=== PATIENT | female | born 1950 | race Caucasian/White ===

== ENCOUNTER → 2023-07-16 09:39 | Outpatient (BNVA) | payer MEDICARE, SELFPAY | PROVIDERS: Visit Provider Family Medicine | DX: R73.03 Prediabetes (principal); E53.8 Deficiency of other specified B group vitamins | CPT/HCPCS: 80048; 82607; 82746; 83036; 85025 ==

== ENCOUNTER → 2023-12-23 11:02 | Outpatient (BNVA) | payer MEDICARE, SELFPAY | PROVIDERS: PCP Family Medicine; Visit Provider Family Medicine | DX: R30.0 Dysuria (principal) | CPT/HCPCS: 81000; 87077; 87086; 87184 ==

== ENCOUNTER → 2024-01-27 16:56 | Outpatient (BNVA) | payer MEDICARE, SELFPAY | PROVIDERS: PCP Family Medicine; Visit Provider Nurse Practitioner Family | DX: R30.0 Dysuria (principal); N30.00 Acute cystitis without hematuria | CPT/HCPCS: 81000; 87077; 87086; 87184 ==

== ENCOUNTER → 2024-06-17 11:41 | Outpatient (BNVA) | payer MEDICARE, SELFPAY | PROVIDERS: PCP Family Medicine; Visit Provider Family Medicine | DX: Z13.6 Encounter for screening for cardiovascular disorders (principal); Z13.220 Encounter for screening for lipoid disorders; E53.8 Deficiency of other specified B group vitamins; R10.9 Unspecified abdominal pain; R73.03 Prediabetes | CPT/HCPCS: 80053; 80061; 82607; 83036; 83690 ==

== ENCOUNTER 2024-06-23 16:23 | Outpatient (CLI) | payer MEDICARE, SELFPAY ==
--- NOTE | 2024-06-23 16:29 | XR_ITS ---
WS: [id number] XR lumbar spine 2-3V* [id number] REASON FOR EXAM: M54.50 - Low back pain, unspecified FINDINGS: Severe rotatory levoscoliosis of the lumbar spine. Relatively normal lordosis of the lumbar spine. Mild to moderate deformities of the superior endplate of L2, L3, and L5. Significant narrowing of the disc space at L2-L3. Remainder of the disc spaces mild to moderate narro wing. No significant listhesis. Moderate degenerative arthropathy in the facet joints at L5-S1. XR/XR lumbar spine 2-3V* [id number] IMPRESSION: Degenerative spondylosis. Compression deformities of unknown chronicity as above.
== END 2024-06-23 16:24 | disposition home or self-care (01) ==
LOC: RAD 16:25
PROVIDERS: PCP Family Medicine; Visit Provider Family Medicine
DX: M41.86 Other forms of scoliosis, lumbar region (principal); M47.896 Other spondylosis, lumbar region; M48.061 Spinal stenosis, lumbar region without neurogenic claudication
CPT/HCPCS: 72100

== ENCOUNTER → 2024-07-10 16:27 | Outpatient (BNVA) | payer MEDICARE, SELFPAY | PROVIDERS: PCP Family Medicine; Visit Provider Emergency Medicine | DX: R30.0 Dysuria (principal); N39.0 Urinary tract infection, site not specified | CPT/HCPCS: 81000; 87086 ==

== ENCOUNTER → 2024-10-21 11:00 | Outpatient (BNVA) | payer MEDICARE, SELFPAY | PROVIDERS: PCP Family Medicine; Referring Provider Family Medicine; Visit Provider Specialist | DX: B02.9 Zoster without complications (principal); M53.86 Other specified dorsopathies, lumbar region; R03.0 Elevated blood-pressure reading, without diagnosis of hypertension; G24.4 Idiopathic orofacial dystonia; G25.0 Essential tremor | CPT/HCPCS: 99204 ==

== ENCOUNTER 2024-11-03 12:17 | Outpatient (CLI) | payer MEDICARE, SELFPAY ==
--- NOTE | 2024-11-03 12:15 | MR_ITS ---
WS: [id number] MRI LUMBAR SPINE NONCONTRAST TECHNIQUE: Sagittal T1, T2 and STIR imaging. Axial T1 and T2 imaging. CLINICAL INFORMATION: M53.86 - Other specified dorsopathies, lumbar region COMPARISON: None. FINDINGS: S-shaped scoliosis. No acute compression. Slight anterolisthesis L3 on L4 and L4 on L5. Disc bulging throughout the lumbar spine with moderate to advanced spondylitic changes. L1-L2: Mild disc bulging with narrowing of the subarticular recess bilaterally. Moderate facet arthro brandy. Mild bilateral foraminal narrowing. Mild central canal stenosis. L2-L3: Disc bulging with moderate central canal stenosis. Impingement on RIGHT greater than LEFT suba rticular recess. Moderate facet arthropathy and ligamentum flavum hypertrophy. Mild RIGHT greater michael n LEFT foraminal narrowing. L3-L4: Mild disc bulging with impingement subarticular recess bilaterally. Moderate central canal leon nosis. Moderate facet arthropathy ligamentum flavum hypertrophy. Moderate RIGHT and mild LEFT foramin al narrowing. L4-L5: Disc bulging in combination with facet arthropathy and ligamentum flavum hypertrophy results i n moderate to severe central canal stenosis. Impingement LEFT subarticular recess. Mild bilateral fo raminal narrowing. L5-S1: Mild disc bulging impinges the traversing S1 nerve roots bilaterally LEFT greater than RIGHT. Moderate facet arthropathy ligamentum flavum hypertrophy. Moderate central canal stenosis. Moderate L EFT and mild RIGHT foraminal narrowing. Visualized pelvic bony structures: Normal. Paravertebral soft tissues: Normal. Cholelithiasis. MR/MR lumbar spine wo con* [id number] IMPRESSION: 1. Lumbar scoliosis. No acute compression. 2. Moderate to severe central canal stenosis L4-5. Moderate central canal sten osis L5-S1. 3. Mild central canal stenosis L1-2 and L3-4. Moderate central canal stenosis L2-3. 4. Moderate RIGHT L2-3 RIGHT L3-4 and LEFT L5-S1 foraminal narrowing. 5. Cholelithiasis. This can be followed up with ultrasound.
== END 2024-11-03 12:18 | disposition home or self-care (01) ==
PROVIDERS: PCP Family Medicine; Visit Provider Specialist
DX: M51.360 Other intervertebral disc degeneration, lumbar region with discogenic back pain only (principal); M53.86 Other specified dorsopathies, lumbar region; M41.86 Other forms of scoliosis, lumbar region; M47.896 Other spondylosis, lumbar region; M99.63 Osseous and subluxation stenosis of intervertebral foramina of lumbar region; M54.16 Radiculopathy, lumbar region; M24.28 Disorder of ligament, vertebrae
CPT/HCPCS: 72148

== ENCOUNTER → 2024-12-03 13:42 | Outpatient (BNVA) | payer MEDICARE, SELFPAY | PROVIDERS: PCP Family Medicine; Visit Provider Orthopaedic Surgery | DX: M48.062 Spinal stenosis, lumbar region with neurogenic claudication (principal); M54.9 Dorsalgia, unspecified; M54.6 Pain in thoracic spine; M54.2 Cervicalgia | CPT/HCPCS: 72050; 72072; 72110; 99204 ==

== ENCOUNTER → 2024-12-04 13:00 | Outpatient (BNVA) | payer MEDICARE, SELFPAY | PROVIDERS: PCP Family Medicine; Visit Provider Specialist | DX: G24.4 Idiopathic orofacial dystonia (principal) | CPT/HCPCS: J0585 ==

== ENCOUNTER → 2024-12-28 13:37 | Outpatient (BNVA) | payer MEDICARE, SELFPAY | PROVIDERS: PCP Family Medicine; Visit Provider Anesthesiology Pain Medicine | DX: M48.062 Spinal stenosis, lumbar region with neurogenic claudication (principal) | CPT/HCPCS: 99204 ==

== ENCOUNTER → 2025-01-13 14:26 | Outpatient (BNVA) | payer MEDICARE, SELFPAY | PROVIDERS: PCP Family Medicine; Visit Provider Anesthesiology Pain Medicine | DX: M54.16 Radiculopathy, lumbar region (principal); M48.062 Spinal stenosis, lumbar region with neurogenic claudication | CPT/HCPCS: 64483; 64484; J1100; J3490 ==

== ENCOUNTER → 2025-02-11 14:30 | Outpatient (BNVA) | payer MEDICARE, SELFPAY | PROVIDERS: PCP Family Medicine; Visit Provider Nurse Practitioner Family | DX: M48.062 Spinal stenosis, lumbar region with neurogenic claudication (principal); M54.2 Cervicalgia | CPT/HCPCS: 72040; 73030; 99214 ==

== ENCOUNTER → 2025-02-23 13:31 | Outpatient (BNVA) | payer MEDICARE, SELFPAY | PROVIDERS: PCP Family Medicine; Visit Provider Anesthesiology Pain Medicine | DX: M54.16 Radiculopathy, lumbar region (principal); M54.9 Dorsalgia, unspecified; M48.062 Spinal stenosis, lumbar region with neurogenic claudication | CPT/HCPCS: 64483; 64484; J1100; J3490; J9999 ==

== ENCOUNTER → 2025-03-02 15:26 | Outpatient (BNVA) | payer MEDICARE, SELFPAY | PROVIDERS: PCP Family Medicine; Visit Provider Orthopaedic Surgery | DX: M48.062 Spinal stenosis, lumbar region with neurogenic claudication (principal) | CPT/HCPCS: 99213 ==

== ENCOUNTER → 2025-03-12 13:29 | Outpatient (BNVA) | payer MEDICARE, SELFPAY | PROVIDERS: PCP Family Medicine; Visit Provider Specialist | DX: G24.4 Idiopathic orofacial dystonia (principal) | CPT/HCPCS: 64612; J0585; J9999 ==

== ENCOUNTER → 2025-06-10 13:45 | Outpatient (BNVA) | payer MEDICARE, SELFPAY | PROVIDERS: PCP Family Medicine; Visit Provider Specialist | DX: G24.4 Idiopathic orofacial dystonia (principal); G25.0 Essential tremor; R21 Rash and other nonspecific skin eruption | CPT/HCPCS: 36415; 64612; 80053; 84439; 84443; 85025; J0585; J9999 ==

== ENCOUNTER → 2025-07-13 14:10 | Outpatient (BNVA) | payer MEDICARE, OTHER, SELFPAY | PROVIDERS: PCP Family Medicine; Visit Provider Nurse Practitioner Family | DX: L21.8 Other seborrheic dermatitis (principal); L98.1 Factitial dermatitis; L81.4 Other melanin hyperpigmentation; L57.0 Actinic keratosis | CPT/HCPCS: 17000; 99203 ==

== ENCOUNTER → 2025-11-01 08:45 | Outpatient (BNVA) | payer MEDICARE, SELFPAY | PROVIDERS: PCP Family Medicine; Visit Provider Anesthesiology Pain Medicine | DX: G62.9 Polyneuropathy, unspecified (principal); M79.18 Myalgia, other site; M48.061 Spinal stenosis, lumbar region without neurogenic claudication; L81.4 Other melanin hyperpigmentation; L57.8 Other skin changes due to chronic exposure to nonionizing radiation; L57.0 Actinic keratosis | CPT/HCPCS: 17000; 20553; 64612; 99213; J1010; J3490 ==